=== PATIENT | female | born 1980 | race Caucasian/White ===

== ENCOUNTER → 2019-06-25 | Outpatient (REF) | payer BC ==
[~2019-06-25] MED LIST: IBUP600T26 PO; MAPA500T17 PO
[2019-06-25 18:47] LABS: INFLUENZA A AMPLIFICATION NEGATIVE (NEGATIVE); INFLUENZA B AMPLIFICATION NEGATIVE (NEGATIVE)
== END ==
LOC: M LAB REF 16:42
PROVIDERS: ATTEND Nurse Practitioner Adult Health
DX: J06.9 Acute upper respiratory infection, unspecified (principal)

== ENCOUNTER → 2021-10-19 | Outpatient (CLI) | payer BC | LOC: M WUC 13:04 | PROVIDERS: ATTEND Nurse Practitioner Adult Health ==

== ENCOUNTER 2022-12-30 16:41 | Emergency (ER) | payer BC ==
[~2022-12-30] VITALS: Ht 167.6 cm; Wt 75.6 kg
[2022-12-30] MEDS ORDERED: AMOX875T2 PO (20:12)
[2022-12-30] MEDS ORDERED: FLON1SPR NARES (20:12)
[2022-12-30 20:23] VITALS: BP 123/75; TEMP 97.9; O2SAT 97
== END 2022-12-30 20:25 | disposition home or self-care (01) ==
LOC: M ED 16:41
DX: H66.91 Otitis media, unspecified, right ear (principal); F10.10 Alcohol abuse, uncomplicated; J45.909 Unspecified asthma, uncomplicated; K21.9 Gastro-esophageal reflux disease without esophagitis; Z88.8 Allergy status to other drugs, medicaments and biological substances; Z91.013 Allergy to seafood; Z79.2 Long term (current) use of antibiotics; Z79.899 Other long term (current) drug therapy

== ENCOUNTER → 2024-02-27 | Outpatient (CLI) | payer OTHER ==
[~2024-02-27] MED LIST changes: +AMOX875T2 PO; +FLON1SPR NARES
== END ==
LOC: M RAD 14:24
PROVIDERS: ATTEND Nurse Practitioner Adult Health
DX: M47.816 Spondylosis without myelopathy or radiculopathy, lumbar region (principal); M16.12 Unilateral primary osteoarthritis, left hip

== ENCOUNTER → 2024-07-24 | Outpatient (REF) | payer OTHER | LOC: M LAB REF 17:43 | PROVIDERS: ATTEND Physician Assistant Medical | DX: N39.0 Urinary tract infection, site not specified (principal) ==

== ENCOUNTER → 2024-11-19 | Outpatient (CLI) | payer OTHER ==
[~2024-11-19] MED LIST changes: +ACET-683 PO; +ADVA1AER9 INH; +BISA10SU PR; +DOCU8.6T PO; +FLON1SPR; +MONT10TA97 PO; +ONDA-282 PO; +SEMA1.7P SQ; +ZYRT10TA12 PO
== END ==
LOC: M RAD 14:37
PROVIDERS: ATTEND Nurse Practitioner Adult Health
DX: M51.26 Other intervertebral disc displacement, lumbar region (principal); M51.27 Other intervertebral disc displacement, lumbosacral region

== ENCOUNTER → 2025-01-23 | Outpatient (CLI) | payer OTHER ==
[~2025-01-23] MED LIST changes: +ISOVUE-300 61% 100 ML VIAL As Ordered ONE; +LIDOCAINE 1% MDV 20 ML VIAL SC STA; +methylPREDNISolone 80 MG/ML SUSP 1 ML VIAL IA ONE
[2025-01-23 15:29] VITALS: BP 115/68; TEMP 97.8; O2SAT 99
== END ==
LOC: M IRPRO 15:19
PROVIDERS: ATTEND Nurse Practitioner Adult Health
DX: M53.3 Sacrococcygeal disorders, not elsewhere classified (principal); M54.50 Low back pain, unspecified
CPT/HCPCS: 27096; Q9967